=== PATIENT | female | born 1970 | race Caucasian/White ===

== ENCOUNTER → 2021-08-03 15:55 | Outpatient (CLI) | payer OTHER, SELFPAY ==
[2021-08-03 16:48] LABS: Hematocrit 40.9 % (37-47); Hemoglobin 13.1 g/dL (12.0-15.0); Mean Corpuscular Hgb 28.7 pg (27.0-32.0); Mean Corpuscular Volume 89.7 fL (81-99); Platelet Count 235 K/mm3 (150-450); RBC Distribution Width CV 12.3 % (11.6-14.6); RBC Distribution Width SD 40.5 fl (35.1-43.9); Red Blood Count 4.56 M/mm3 (4.2-5.4); White Blood Count 7.9 K/mm3 (4.4-11.0)
[2021-08-03 16:56] LABS: Color, Urine Yellow (Yellow); Glucose, Dipstick Normal (Normal); Ketone-Dipstick Negative (Negative); Leukocyte Esterase-Dipstick Negative /ul (Negative); Nitrite-Dipstick Negative (Negative); Occult Blood-Urine Negative /ul (Negative); Protein-Dipstick Negative (Negative); Specific Gravity, Urine 1.015 (1.002-1.030); Urine Bilirubin Dipstick Negative (Negative); Urine Clarity Sl. Cloudy (Clear); Urine Urobilinogen Normal (Normal)
[2021-08-03 17:05] LABS: CRP < 2.90 mg/L (0.0-3.0)
== END ==
PROVIDERS: PCP Internal Medicine; Visit Provider Obstetrics & Gynecology Gynecology
DX: R10.30 Lower abdominal pain, unspecified (principal)
CPT/HCPCS: 36415; 81002; 85027; 86140

== ENCOUNTER 2021-09-01 07:30 | Outpatient (CLI) | payer OTHER, SELFPAY ==
--- NOTE | 2021-09-01 07:35 | BI_ITS ---
MAMMOGRAPHY - BILATERAL SCREENING REASON FOR EXAM: Female, 51 years old. Routine annual screening examination. PERTINENT HISTORY: Mother with breast cancer. TECHNIQUE: Digital bilateral breast alexandru (3D mammographic acquisition) in the CC and MLO projections. 2-D mediolateral oblique (MLO) and craniocaudad (CC) views of both breasts were obtained. CAD: Full Field Digital Mammography with Computer Added Detection was performed. COMPARISON: Comparison is made with prior abdomen examination dated 08/29/2015. FINDINGS: Breast Composition: The breasts are heterogeneously dense, which may obscure small masses. There are no dominant masses or suspicious calcifications. Small benign-appearing bilateral axillary lymph nodes. No other significant abnormalities are identified. There has been no significant change since the prior study. BI/SCRN MAMM (CAD)W/ALEXANDRU BILAT IMPRESSION: Stable bilateral screening mammogram. Yearly follow-up mammogram recommended. (A) ASSESSMENT CATEGORY: BIRADS Category 2: Benign. A letter regarding these results will be sent to the patient by the facility within 30 days. Approximately 10% of breast cancers are not detected by mammography. A normal mammogram should not delay biopsy of a clinically suspicious abnormality. [id number] Electronically Signed: Jarret Garcia MD at 8:33 EST , Service support ,
== END 2021-09-01 23:59 | disposition short-term general hospital (02) ==
LOC: OPBI 07:30
PROVIDERS: PCP Internal Medicine; Referring Provider Obstetrics & Gynecology Gynecology; Visit Provider Obstetrics & Gynecology Gynecology
DX: Z12.31 Encounter for screening mammogram for malignant neoplasm of breast (principal)
CPT/HCPCS: 77063; 77067

== ENCOUNTER 2021-10-17 08:03 | Day surgery (SDC) | payer OTHER, SELFPAY ==
[2021-10-17] VITALS (12 sets, daily range): BP systolic 92–144; BP diastolic 52–91; PULSE 63–100; RESP 16–18; TEMP 36.2–36.9; O2SAT 94–100; BMI 31.9
--- NOTE | 2021-10-17 | COLBX_PTH ---
PATIENT: LO MIKE LOC: EN U#:[id number] AGE/SX: 51/F ROOM: RE10/17/[address]: Dr. Yousuf Narayanan MD : 1970 BED: DIS: 10/17/2021 SPEC #: [id number] RECD: 10/17/21 12:16 STATUS: DAVI LAIRD #: [id number] AKLIN: 10/17/21 00:[address]: Yousuf Narayanan DEPT: SURGICAL PATHOLOGY RECD BY: Daron Lopes ENTERED: 10/17/21 12:17 SP TYPE: COLON BX OTHR DR: Dr. Lo Lugo MD Tissues: Descending colon Procedures: Surgery Specimen Level IV HEADER OPERATION: Colonoscopy ? open access (MOD) PRE-OP DIAGNOSIS: Screening for malignant neoplasm of colon TISSUE SUBMITTED: Descending polyp biopsy MICROSCOPIC DIAGNOSIS Descending colon polyp, biopsy: Fragments of colonic mucosa, no pathologic diagnosis. See comment. SJ:maurice 10/18/2021 COMMENT Adenomatous or hyperplastic changes are not seen. MICROSCOPIC DESCRIPTION Slides are reviewed. GROSS DESCRIPTION Received in fixative is one container labeled with the patient's name and designated descending polyp biopsy. The specimen consists of multiple irregular fragments of light chand soft tissue that in aggregate measure 1 x 0.3 x 0.1 cm. The specimen is totally submitted in one cassette. / JULIÁN:maurice 10/17/2021 TC:4 CPT: 25477
[2021-10-17] MEDS: Lactated Ringers 1,000 ML 15 ML IV (08:28)
--- NOTE | 2021-10-17 09:16 | HP.PCM_ITS ---
HPI - General HPI Narrative PEEWEE MIKE, is a 51 F who presents for screening colonoscopy today. She has never had a previous one. No middle abdominal pain no bright red blood per rectum. No family history. She otherwise enjoys good health. She has not had COVID-19 and she has been vaccinated. FORMERLY [facility], 1928–1983 Medical History (Updated 10/12/21 @ 11:48 by Calista Madsen) Hay fever History of deviated nasal septum History of diverticulosis Non-smoker Post-menopausal Wears contact lenses Wears glasses Home Medications magnesium chloride 200 mg PO PRN PRN 10/04/21 [History Last Taken Unknown] multivitamin 1 tab PO DAILY 10/04/21 [History Last Taken Unknown] Allergy/AdvReac Type Severity Reaction Status Date / Time acetaminophen [From Tylenol] Allergy Unknown Verified 10/17/21 08:21 aspirin Allergy Unknown Verified 10/17/21 08:21 erythromycin base Allergy Hives Verified 10/17/21 08:21 [From E-Mycin] ibuprofen [From Advil] Allergy Unknown Verified 10/17/21 08:21 Iodinated Contrast Media Allergy Hives Verified 10/17/21 08:21 Sulfa (Sulfonamide Allergy Unknown Verified 10/17/21 08:21 Antibiotics) sulfamethoxazole Allergy Hives Verified 10/17/21 08:21 [From Bactrim] trimethoprim [From Bactrim] Allergy Hives Verified 10/17/21 08:21 Family History (Updated 10/04/21 @ 08:13 by Linsey Beavers) Other Cancer Social History (Updated 10/04/21 @ 08:14 by Linsey Beavers) household members: none current occupational status: employed 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 Smoking Status: Never smoker alcohol intake: never ROS Constitutional Constitutional: Reports systems reviewed and no addt'l complaints, except as documented Cardiovascular Cardiovascular: Denies chest pain Respiratory/Chest Respiratory/Chest: Denies shortness of breath at rest Gastrointestinal Gastrointestinal: Denies abdominal pain, change in bowel habits, hematochezia or melena Vital Signs Vital Signs Vital Signs: 10/17/21 08:22 Temperature 97.1 F L Temperature Source Temporal Pulse Rate 100 Respiratory Rate 18 Respiratory Pattern Normal Blood Pressure 144/79 H Blood Pressure Mean 100 Blood Pressure Source Monitor Blood Pressure Position Semi-Fowlers Blood Pressure Location Left Arm Pulse Ox 99 Oxygen Delivery Method Room Air Weight Weight: 210 lb 3.372 oz Body Mass Index (BMI) 31.9 Physical Exam Const alert, oriented x3 and no apparent distress General Appearance: cooperative and comfortable Eyes General Eye: normal appearance of both eyes Neck General: normal visual inspection Chest inspection of chest normal Resp Effort and Inspection: able to speak in complete sentences and symmetric chest movement Auscultation: clear to auscultation bilaterally Cardio regular rate and regular rhythm GI soft to palpation, non-tender and non-distended Extremity no calf tenderness Neuro oriented x3 Psych thought process normal Assessment & Plan Assessment/Plan (1) Encounter for screening for malignant neoplasm of colon: PLAN: I recommended the patient a screening colonoscopy with possible biopsy or polypectomy as indicated. She is aware of the technique, benefit, risk, alternatives. She presents via open access today. We will proceed as noted. Yousuf Narayanan M.D., F.A.C.S.
[2021-10-17] MEDS: Midazolam 5 MG/ML Syringe ×2 (09:20→09:35)
[2021-10-17] MEDS: DiphenhydrAMINE 50 MG/ML Syringe (09:24)
[2021-10-17] MEDS: Ondansetron 4 MG/2 ML Vial (09:37)
--- NOTE | 2021-10-17 09:54 | OP.COLON_ITS ---
Patient Name: Lo Hernandez Procedure Date: 10/17/2021 9:08 AM Date of : 1970 Age: 51 Procedure: Colonoscopy Indications: Screening for colorectal malignant neoplasm Providers: Yousuf Narayanan MD Medicines: Midazolam 6 mg IV, Meperidine 150 mg IV, Ondansetron 4 mg IV, Diphenhydramine 25 mg IV Patient Profile: Last Colonoscopy: none. The patient's first colonoscopy is today. Complications: No immediate complications. Procedure: Pre-Anesthesia Assessment: - Prior to the procedure, a History and Physical was performed, and patient medications and allergies were reviewed. The patient's tolerance of previous anesthesia was also reviewed. The risks and benefits of the procedure and the sedation options and risks were discussed with the patient. All questions were answered, and informed consent was obtained. Prior Anticoagulants: The patient has taken no previous anticoagulant or antiplatelet agents. ASA Grade Assessment: II - A patient with mild systemic disease. After reviewing the risks and benefits, the patient was deemed in satisfactory condition to undergo the procedure. After I obtained informed consent, the scope was passed under direct vision. Throughout the procedure, the patient's blood pressure, pulse, and oxygen saturations were monitored continuously. The pediatric colonoscope was introduced through the anus and advanced to the cecum, identified by appendiceal orifice and ileocecal valve. The colonoscopy was somewhat difficult due to a tortuous colon. Successful completion of the procedure was aided by increasing the dose of sedation medication. The patient tolerated the procedure well. The quality of the bowel preparation was adequate to identify polyps. The ileocecal valve and the appendiceal orifice were photographed. Moderate Sedation: Moderate (conscious) sedation was administered by the endoscopy nurse and supervised by the endoscopist. The following parameters were monitored: oxygen saturation, heart rate, blood pressure, and response to care. Total physician intraservice time was 18 minutes. Scope In: 9:26:13 AM Scope Withdrawal Time 0 hours 0 minutes 13 seconds Scope Out: 9:47:32 AM Total Procedure Duration Time 0 hours 21 minutes 19 seconds Findings: The digital rectal exam findings include non-thrombosed external hemorrhoids, non-thrombosed internal hemorrhoids and internal hemorrhoids that prolapse with straining, but spontaneously regress to the resting position (Grade II). A 5 mm polyp was found in the mid descending colon. The polyp was sessile. The polyp was removed with a cold biopsy forceps. Resection and retrieval were complete. Multiple diverticula were found in the sigmoid colon. The colon (entire examined portion) was moderately tortuous. Advancing the scope required using manual pressure. Impression: - Non-thrombosed external hemorrhoids, non-thrombosed internal hemorrhoids and internal hemorrhoids that prolapse with straining, but spontaneously regress to the resting position (Grade II) found on digital rectal exam. - One 5 mm polyp in the mid descending colon, removed with a cold biopsy forceps. Resected and retrieved. - Diverticulosis in the sigmoid colon. - Tortuous colon. Recommendation: - Discharge patient to home. - Resume previous diet. - Continue present medications. - Repeat colonoscopy in 5 years for surveillance based on pathology results. - Telephone my office for pathology results in 1 week. I recommend monitored anesthesia care for her next colonoscopy Procedure Code(s): --- Professional --- 27946, Colonoscopy, flexible; with biopsy, single or multiple 10879, 59, Moderate sedation services provided by the same physician or other qualified health youth care professional performing the diagnostic or therapeutic service that the sedation supports, requiring the presence of an independent trained observer to assist in the monitoring of the patient's level of consciousness and physiological status; initial 15 minutes of intraservice time, patient age 5 years or older Diagnosis Code(s): --- Professional --- Z12.11, Encounter for screening for malignant neoplasm of colon K64.1, Second degree hemorrhoids K64.4, Residual hemorrhoidal skin tags D12.4, Benign neoplasm of descending colon K57.30, Diverticulosis of large intestine without perforation or abscess without bleeding Q43.8, Other specified congenital malformations of intestine CPT copyright 2017 [employer]. All rights reserved. The codes documented in this report are preliminary and upon acquisition specialist review may be revised to meet current compliance requirements. Yousuf Narayanan MD 10/17/2021 9:53:26 AM This report has been signed electronically. Number of Addenda: 0 Note Initiated On: 10/17/2021 9:08 AM
--- NOTE | 2021-10-17 09:55 | OP.CCLET_ITS ---
10/17/2021 Lo Lugo [facility] [address] [place] [address] Re : Colonoscopy procedure for Lo Hernandez Dear Dr. Lugo This procedure was performed on Sunday, October 17, 2021. My impressions and recommendations are as follows: Impressions : - Non-thrombosed external hemorrhoids, non-thrombosed internal hemorrhoids and internal hemorrhoids that prolapse with straining, but spontaneously regress to the resting position (Grade II) found on digital rectal exam. - One 5 mm polyp in the mid descending colon, removed with a cold biopsy forceps. Resected and retrieved. - Diverticulosis in the sigmoid colon. - Tortuous colon. Recommendations : - Discharge patient to home. - Resume previous diet. - Continue present medications. - Repeat colonoscopy in 5 years for surveillance based on pathology results. - Telephone my office for pathology results in 1 week. I recommend monitored anesthesia care for her next colonoscopy My findings are described in the full procedure note, which is enclosed. If I can be of further assistance, please feel free to contact me at Doctor phone number(s): Work: . Sincerely, Yousuf Narayanan MD 10/17/2021 9:53:26 AM This report has been signed electronically.
== END 2021-10-17 23:59 | disposition home or self-care (01) ==
LOC: EN 08:04 → AC 08:05
PROVIDERS: PCP Internal Medicine; Referring Provider Internal Medicine; Visit Provider Surgery
PROC: 0DJD8ZZ Inspection of Lower Intestinal Tract, Via Natural or Artificial Opening Endoscopic (ICD-10-PCS; CPT 45378; principal; 2021-10-17 08:55)
DX: Z12.11 Encounter for screening for malignant neoplasm of colon (principal); K64.1 Second degree hemorrhoids; K64.4 Residual hemorrhoidal skin tags; K57.30 Diverticulosis of large intestine without perforation or abscess without bleeding; K63.5 Polyp of colon; Q43.8 Other specified congenital malformations of intestine
CPT/HCPCS: 45380; 88305; 99152; 99153; J7120; J2405

== ENCOUNTER → 2021-12-06 | Outpatient (CLI) | payer OTHER, SELFPAY ==
[2021-12-06 08:00] LABS: Mucous, Urine 0 SEEN /hpf (<or=2+); Red Blood Cells-Urine 0 SEEN /hpf (0-5)
[2021-12-06 08:17] LABS: Absolute Lymphocyte Count 2.24 X10^3/uL (0.83-4.51); Basophil# 0.05 X10^3/uL; Basophil% 0.8 % (0-1); Eosinophil# 0.18 X10^3/uL; Hematocrit 42.3 % (37-47); Hemoglobin 13.9 g/dL (12.0-15.0); Lymphocyte # 2.24 X10^3/ul (0.83-4.51); Lymphocyte % 37.6 % (19-41); Mean Corp Hgb Conc 32.9 g/dL (32-36); Mean Corpuscular Hgb 29.1 pg (27.0-32.0); Mean Corpuscular Volume 88.5 fL (81-99); Mean Platelet Vol. 11.3 fl (6.2-12.0); Monocyte# 0.46 X10^3/uL; Monocyte% 7.7 % (0-10); NRBC Flagged by Analyzer 0 % (0-5); Neutrophil # 3.01 X10^3/uL (2.7-7.7); Neutrophil % 50.6 % (47-70); Platelet Count 238 K/mm3 (150-450); RBC Distribution Width CV 12.4 % (11.6-14.6); RBC Distribution Width SD 40.3 fl (35.1-43.9); Red Blood Count 4.78 M/mm3 (4.2-5.4)
[2021-12-06 08:20] LABS: Color, Urine Yellow (Yellow); Glucose, Dipstick Normal (Normal); Ketone-Dipstick Negative (Negative); Leukocyte Esterase-Dipstick Negative /ul (Negative); Nitrite-Dipstick Negative (Negative); Occult Blood-Urine Negative /ul (Negative); Protein-Dipstick Negative (Negative); Urine Bilirubin Dipstick Negative (Negative); Urine Clarity Clear (Clear); Urine Urobilinogen Normal (Normal)
[2021-12-06 08:42] LABS: Bacteria 1+ /hpf (None Seen); Squamous Epithelial Cells - UA 0-5 SEEN /hpf (5-10); White Blood Cells 0-5 SEEN /hpf (0-5)
[2021-12-06 08:57] LABS: AST(SGOT) 17 U/L (15-37); Alanine Aminotransfer ALT/SGPT 32 U/L (13-56); Albumin, Serum 3.8 g/dL (3.2-5.0); Alkaline Phosphatase 102 U/L (45-117); Anion Gap 7 (5-15); BUN 10 mg/dL (7-18); BUN/Creat Ratio 12.3 RATIO (10-20); Calcium,Total 9.2 mg/dL (8.5-10.1); Chloride 105 mmol/L (98-107); Cholesterol 210 mg/dL (200); Creatinine, Serum 0.82 mg/dL (0.55-1.02); EST Glomerular Filtration Rate 78 mL/min (>60); Est Glom Filt Rate - Afr Amer 95 mL/min (>60); Free T3 2.9 pg/mL (2.18-3.98); Globulin 3.7 g/dL (2.2-4.2); Glucose 103 mg/dL (74-106); High Density Lipoprotein 45 mg/dL; Magnesium 2.1 mg/dL (1.6-2.6); Potassium 3.9 mmol/L (3.5-5.1); Protein, Total 7.5 g/dL (6.4-8.2); Sodium Level 137 mmol/L (136-145); Triglycerides 176 mg/dL; Very Low Density Lipoprotein 35 mg/dL (5-40)
[2021-12-06 09:30] LABS: Vitamin D,25 Hydroxy 17.3 ng/mL
== END | disposition home or self-care (01) ==
LOC: LAB 07:54
PROVIDERS: PCP Internal Medicine; Referring Provider Internal Medicine; Visit Provider Internal Medicine
DX: Z01.818 Encounter for other preprocedural examination (principal); Z13.220 Encounter for screening for lipoid disorders; Z13.1 Encounter for screening for diabetes mellitus; E55.9 Vitamin D deficiency, unspecified
CPT/HCPCS: 36415; 80053; 80061; 81001; 82306; 83735; 84439; 84443; 84481; 85025; 87086; 87088

== ENCOUNTER → 2021-12-13 | Outpatient (CLI) | payer OTHER, SELFPAY ==
--- NOTE | 2021-12-13 07:11 | EKG12_ITS ---
Test Reason : PREOP Blood Pressure : / mmHG Vent. Rate : 066 BPM Atrial Rate : 066 BPM P-R Int : 142 ms QRS Dur : 094 ms QT Int : 428 ms P-R-T Axes : -09 -34 018 degrees QTc Int : 448 ms Normal sinus rhythm Left axis deviation Confirmed by RAYSHAWN WILSON, OMER ([id number]), desk editor ALEX SAMANO ([id number]) on 12/13/2021 9:50:59 AM Referred By: Lo Lugo Confirmed By:OMER TABARES MD
== END | disposition home or self-care (01) ==
PROVIDERS: PCP Internal Medicine; Referring Provider Internal Medicine; Visit Provider Internal Medicine
DX: Z01.818 Encounter for other preprocedural examination (principal); R00.2 Palpitations; K57.30 Diverticulosis of large intestine without perforation or abscess without bleeding
CPT/HCPCS: 93005

== ENCOUNTER → 2023-03-06 | Outpatient (CLI) | payer OTHER, SELFPAY ==
--- NOTE | 2023-03-06 08:09 | BI_ITS ---
MAMMOGRAPHY - BILATERAL SCREENING REASON FOR EXAM: Female, 52 years old. Routine annual screening examination. PERTINENT HISTORY: Mother with breast cancer. Grandmother with breast cancer. TECHNIQUE: Digital bilateral breast alexandru (3D mammographic acquisition) in the CC and MLO projections. 2-D mediolateral oblique (MLO) and craniocaudad (CC) views of both breasts were obtained. CAD: Full Field Digital Mammography with Computer Added Detection was performed. COMPARISON: Comparison is made with prior study dated September 01, 2021. FINDINGS: Breast Composition: The breasts are heterogeneously dense, which may obscure small masses. New focal area of architectural distortion and density is seen in the central portion of the left breast on the craniocaudad view. The patient will be recalled for additional views including 90 degree lateral view and compression spot views of the left breast. No other significant abnormalities are identified. BI/SCRN MAMM (CAD)W/ALEXANDRU BILAT IMPRESSION: New focal area of architectural distortion seen in the central aspect of the left breast on the craniocaudad view as described. The patient will be recalled for additional views of the left breast. Recall Side: Left Breast ASSESSMENT CATEGORY: BIRADS Category 0: Incomplete. Need additional imaging evaluation. A letter regarding these results will be sent to the patient by the facility within 30 days. Approximately 10% of breast cancers are not detected by mammography. A normal mammogram should not delay biopsy of a clinically suspicious abnormality. [id number] Electronically Signed: Jarret Garcia MD at 9:00 EDT ,
== END | disposition home or self-care (01) ==
LOC: OPBI 08:07
PROVIDERS: PCP Internal Medicine; Referring Provider Obstetrics & Gynecology Gynecology; Visit Provider Obstetrics & Gynecology Gynecology
DX: Z12.31 Encounter for screening mammogram for malignant neoplasm of breast (principal); Z80.3 Family history of malignant neoplasm of breast
CPT/HCPCS: 77063; 77067

== ENCOUNTER → 2023-03-07 | Outpatient (CLI) | payer OTHER, SELFPAY ==
--- NOTE | 2023-03-07 08:57 | BI_ITS ---
MAMMOGRAPHY - UNILATERAL DIAGNOSTIC: LEFT BREAST REASON FOR EXAM: Female, 52 years old. Abnormal screening mammogram. PERTINENT HISTORY: Mother with breast cancer. Grandmother with breast cancer. TECHNIQUE: Compression spot views and magnification views of the left breast were obtained. CAD: Full Field Digital Mammography with Computer Added Detection was performed. COMPARISON: Comparison is made with prior study March 06, 2023. FINDINGS: Breast Composition: The breasts are heterogeneously dense, which may obscure small masses. Persistent irregular nodular density and architectural distortion with microcalcifications is seen. Correlation with ultrasound is recommended. No other significant abnormalities are identified. BI/DIAG MAMM W/CAD, UNILAT IMPRESSION: Persistent architectural distortion with microcalcifications in the central portion of the left breast. Correlation with ultrasound is recommended. ASSESSMENT CATEGORY: BIRADS Category 0: Incomplete. Need additional imaging evaluation. A letter regarding these results will be sent to the patient by the facility within 30 days. Approximately 10% of breast cancers are not detected by mammography. A normal mammogram should not delay biopsy of a clinically suspicious abnormality. Electronically Signed: Jarret Garcia MD at 10:02 EDT ,
--- NOTE | 2023-03-07 09:33 | US_ITS ---
STUDY: ULTRASOUND BREAST - LEFT REASON FOR EXAM: Female, 52 years old. Abnormal screening and diagnostic mammogram. TECHNIQUE: Axial and longitudinal images of the LEFT breast were performed with a high resolution ultrasound transducer. # OF IMAGES: 67 COMPARISON: Comparison is made with prior mammogram dated March 06, 2023 and March 07, 2023. FINDINGS: LEFT Breast: The mammographic and mildly corresponds to a 1 cm x 0.9 cm heterogeneous hypoechoic solid nodule at the 1:00 position of the breast at 3 cm from the nipple. Biopsy is recommended. Incidental note is made of a 4 mm x 4 mm x 4 mm cyst at the 12:00 position of the breast at 4 cm from the nipple. US/Breast Limited Unilateral IMPRESSION: 1 cm x 0.9 cm heterogeneous hypoechoic irregular solid nodule at the 1:00 position of the breast at 3 cm from nipple. Biopsy recommended. ASSESSMENT CATEGORY: BIRADS Category 4: Suspicious - Biopsy Should Be Considered. A letter regarding these results will be sent to the patient by the facility within 30 days. Electronically Signed: Jarret Garcia MD at 11:04 EDT ,
== END | disposition home or self-care (01) ==
PROVIDERS: PCP Internal Medicine; Referring Provider Obstetrics & Gynecology Gynecology; Visit Provider Obstetrics & Gynecology Gynecology
DX: R92.2 Inconclusive mammogram (principal)
CPT/HCPCS: 76642; 77061; 77065; G0279

== ENCOUNTER 2023-03-13 16:51 | Outpatient (CLI) | payer OTHER, SELFPAY | END 2023-03-13 23:59 | disposition home or self-care (01) | LOC: LABSPEC 16:52 | PROVIDERS: PCP Internal Medicine; Referring Provider Surgery; Visit Provider Surgery | DX: Z00.00 Encounter for general adult medical examination without abnormal findings (principal) ==

== ENCOUNTER → 2023-03-14 | Outpatient (CLI) | payer OTHER, SELFPAY ==
--- NOTE | 2023-03-13 | BRBX_PTH ---
PATIENT: LO MIKE LOC: [facility] U#:[id number] AGE/SX: 52/F ROOM: RE03/14/[address]: Dr. Yousuf Narayanan MD : 1970 BED: DIS: 03/14/2023 SPEC #: [id number] RECD: 03/13/23 16:40 STATUS: DAVI REAshu #: [id number] KALIN: 03/13/23 00:[address]: Yousuf Narayanan DEPT: SURGICAL PATHOLOGY RECD BY: Mela Orellana ENTERED: 03/14/23 11:45 SP TYPE: BREAST BX OTHR DR: Dr. Lo Lugo MD Tissues: Left breast, NOS Procedures: Surgery Specimen Level IV HEADER OPERATION: Left breast biopsy PRE-OP DIAGNOSIS: Left breast mass TISSUE SUBMITTED: Left breast MICROSCOPIC DIAGNOSIS Left breast mass, biopsy: Densely collagenized tissue with benign ductal elements. No evidence of malignancy. AM:maurice 03/15/2023 MICROSCOPIC DESCRIPTION Slides are reviewed. GROSS DESCRIPTION Received in fixative is one container labeled with the patient's name and designated left breast. The specimen consists of multiple elongated fragments of chand-yellow fibroadipose tissue that in aggregate measure 1.5 x 0.2 x 0.1 cm. The entire specimen is submitted in one cassette. / SJ:maurice 03/14/2023 TC:5 CPT: 15016
--- NOTE | 2023-03-14 08:56 | BI_ITS ---
MAMMOGRAPHY - UNILATERAL DIAGNOSTIC: LEFT BREAST REASON FOR EXAM: Female, 52 years old. Clip placement following biopsy. PERTINENT HISTORY: Ultrasound-guided breast biopsy at the 1:00 position of the left breast at 3; some the nipple. TECHNIQUE: Digital unilateral breast modesto (3D mammographic acquisition) in the CC and MLO projections. 2-D mediolateral oblique (MLO) and craniocaudad (CC) views of both breasts were obtained. CAD: Full Field Digital Mammography with Computer Added Detection was performed. COMPARISON: Comparison is made with prior mammogram dated March 06, 2023. FINDINGS: A tissue clip marker is seen in the upper outer aspect of the left breast. BI/DIAG MAMM W/CAD, UNILAT IMPRESSION: Tissue clip marker is seen in the upper outer aspect of the left breast. ASSESSMENT CATEGORY: BIRADS Category 2: Benign. A letter regarding these results will be sent to the patient by the facility within 30 days. Approximately 10% of breast cancers are not detected by mammography. A normal mammogram should not delay biopsy of a clinically suspicious abnormality. Electronically Signed: Jarret Garcia MD at 9:39 EDT ,
== END | disposition home or self-care (01) ==
LOC: OPBI 08:55
PROVIDERS: PCP Internal Medicine; Referring Provider Surgery; Visit Provider Surgery
DX: N63.22 Unspecified lump in the left breast, upper inner quadrant (principal)
CPT/HCPCS: 19083; 77065; 88305

== ENCOUNTER → 2023-03-26 | Outpatient (CLI) | payer OTHER, SELFPAY ==
--- NOTE | 2023-03-26 | BRBX_PTH ---
PATIENT: LO MIKE LOC: [facility] U#:[id number] AGE/SX: 52/F ROOM: RE03/26/[address]: Dr. Yousuf Narayanan MD : 1970 BED: DIS: 03/26/2023 SPEC #: [id number] RECD: 03/26/23 09:41 STATUS: DAVI REAshu #: [id number] KALIN: 03/26/23 00:[address]: Yousuf Narayanan DEPT: SURGICAL PATHOLOGY RECD BY: Daron Lopes ENTERED: 03/26/23 09:42 SP TYPE: BREAST BX OTHR DR: Dr. Lo Lugo MD Tissues: Left breast, NOS Procedures: Surgery Specimen Level IV HEADER OPERATION: Left stereotactic breast biopsy PRE-OP DIAGNOSIS: Left central breast distortion TISSUE SUBMITTED: Left breast core tissue ISCHEMIC TIME: 1 minute FIXATION TIME: 11 hours MICROSCOPIC DIAGNOSIS Left breast, stereotactic core biopsy: Fibrocystic change. Focal intraductal hyperplasia without atypia. Focal adenomatous change. Banal microcalcifications. No evidence of malignancy. AM:maurice 03/27/2023 MICROSCOPIC DESCRIPTION Slides are reviewed. GROSS DESCRIPTION Received is one container labeled with the patient's name and not further designated. The specimen consists of multiple irregular fragments of yellow-chand soft tissue that in aggregate measure 5.0 x 3.0 x 0.2 cm. The specimen is totally submitted in two cassettes. / AM:maurice 03/26/2023 TC:5 CPT: 39071
--- NOTE | 2023-03-26 08:14 | PCM.HP.BLA ---
History and Physical Date of Admission: 03/26/[address] Yousuf Narayanan MD on 03/14/23 at 1401 Intake Chief Complaint: surgical clearance Allergies acetaminophen [From Tylenol] Allergy (Verified 03/13/23 15:27) Unknownaspirin Allergy (Verified 03/13/23 15:27) Unknownerythromycin base [From E-Mycin] Allergy (Verified 03/13/23 15:27) Hivesibuprofen [From Advil] Allergy (Verified 03/13/23 15:27) UnknownIodinated Contrast Media Allergy (Verified 03/13/23 15:27) HivesSulfa (Sulfonamide Antibiotics) Allergy (Verified 03/13/23 15:27) Unknownsulfamethoxazole [From Bactrim] Allergy (Verified 03/13/23 15:27) Hivestrimethoprim [From Bactrim] Allergy (Verified 03/13/23 15:27) Hives Medications magnesium chloride 64 mg (magnesium chloride) tablet 200 mg PO PRN PRN SUPPLEMENT 10/04/21 [History Confirmed 03/13/23] multivitamin (Daily Multi-Vitamin tablet) 1 tab PO DAILY 10/04/21 [History Confirmed 03/13/23] Assessment and Plan Assessment and Plan (1) Abnormal ultrasound of breast: Status: Acute (2) Abnormal mammogram of left breast: Status: Acute Plan: To complicate findings it is now apparent that although the breast mammogram and ultrasound suggested that the item of concern on mammogram correlated with the ultrasound with a lesion in the upper outer quadrant of the left breast in actuality the mammogram is identifying an item in the medial left breast and the ultrasound a questionable item in the upper outer quadrant left breast. Postprocedural mammogram demonstrates the marking clip in the outer left breast not in the location of the questionable finding on mammogram. With this information then we will plan to proceed with a stereotactic needle core biopsy of the inner left breast lesion identified on mammogram. We are awaiting pathology on the ultrasound performed a core biopsy of the very challenging area to identify in the upper outer left breast. Yousuf Narayanan M.D., F.A.C.S. Orders: Orders DIAG MAMM W/CAD, UNILAT Today R92.8 - Other abnormal and inconclusive findings on diagnostic imaging of breast 03/14/23 1401 <Electronically signed by Yousuf Narayanan MD> Date Yousuf Narayanan MD cc: Dr. Simona Wahl MD; Dr. Lo Lugo MD ~* Signed Intake Vital Signs 12/01/2207:25 03/13/2315:26 Height 5 ft 8 in 5 ft 8 in Weight: 166 lb 8 oz BMI 25.3 BP 148/84 H Blood Pressure Location Rt brachial Position Sitting Respiration 17 Pulse 89 Pulse Source Monitor Intake Visit Reasons: BIRADS 4 Chief Complaint: surgical clearance Allergies acetaminophen [From Tylenol] Allergy (Verified 03/13/23 15:27) Unknownaspirin Allergy (Verified 03/13/23 15:27) Unknownerythromycin base [From E-Mycin] Allergy (Verified 03/13/23 15:27) Hivesibuprofen [From Advil] Allergy (Verified 03/13/23 15:27) UnknownIodinated Contrast Media Allergy (Verified 03/13/23 15:27) HivesSulfa (Sulfonamide Antibiotics) Allergy (Verified 03/13/23 15:27) Unknownsulfamethoxazole [From Bactrim] Allergy (Verified 03/13/23 15:27) Hivestrimethoprim [From Bactrim] Allergy (Verified 03/13/23 15:27) Hives Medications magnesium chloride 64 mg (magnesium chloride) tablet 200 mg PO PRN PRN SUPPLEMENT 10/04/21 [History Confirmed 03/13/23] multivitamin (Daily Multi-Vitamin tablet) 1 tab PO DAILY 10/04/21 [History Confirmed 03/13/23] PFSH Medical History Hay fever History of deviated nasal septum History of diverticulosis Non-smoker Post-menopausal Wears contact lenses Wears glasses Family History Other Cancer Social History household members: none current occupational status: employed 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 Simona Wahl for surgical consultation regarding abnormal breast imaging. She will consult recommendations will return to her. As noted below on March 06, 2023 the patient had routine screening mammograms. There is felt to be a new focal area of architectural distortion seen in the central aspect of the left breast. BI-RADS Category 0. On the diagnostic images done March 07, 2023 there is a persistent irregular nodular density identified. Still BI-RADS 0. On that same day ultrasound was performed suggesting a 1 x 0.9 cm heterogenous hypoechoic irregular solid nodule left breast 1 o'clock position +3 cm. BI-RADS Category 4 biopsy recommended. I have personally reviewed those images and concur. 52-year-old female. Z0. Menarche age 10. No previous breast biopsies. She did have a hysterectomy for benign disease and briefly used minimal amount of vaginal cream for a year. Hysterectomy was December 18, 2021. Family history notable for mother had breast cancer at age 74. Grandmother also had breast cancer. The patient has had a 50 pound intentional weight loss and states that most of that weight gain from her breasts. She states that mammographic imaging changed at that time. She has no nipple discharge or bleeding. No tenderness. I have most recently assisted her with a screening colonoscopy on October 17, 2021. That demonstrated tortuous colon and hemorrhoids and diverticulosis and a 5 mm polyp in the mid descending colon which on pathology however was simply normal colonic mucosa. March 07, 2023 STUDY: ULTRASOUND BREAST - LEFT REASON FOR EXAM: Female, 52 years old. Abnormal screening and diagnostic mammogram. TECHNIQUE: Axial and longitudinal images of the LEFT breast were performed with a high resolution ultrasound transducer. # OF IMAGES: 67 COMPARISON: Comparison is made with prior mammogram dated March 06, 2023 and March 07, 2023. FINDINGS: LEFT Breast: The mammographic and mildly corresponds to a 1 cm x 0.9 cm heterogeneous hypoechoic solid nodule at the 1:00 position of the breast at 3 cm from the nipple. Biopsy is recommended. Incidental note is made of a 4 mm x 4 mm x 4 mm cyst at the 12:00 position of the breast at 4 cm from the nipple. US/Breast Limited Unilateral IMPRESSION: 1 cm x 0.9 cm heterogeneous hypoechoic irregular solid nodule at the 1:00 position of the breast at 3 cm from nipple. Biopsy recommended. ASSESSMENT CATEGORY: BIRADS Category 4: Suspicious - Biopsy Should Be Considered. A letter regarding these results will be sent to the patient by the facility within 30 days. Electronically Signed: Jarret Garcia MD at 11:04 EDT , March 07, 2023 MAMMOGRAPHY - UNILATERAL DIAGNOSTIC: LEFT BREAST REASON FOR EXAM: Female, 52 years old. Abnormal screening mammogram. PERTINENT HISTORY: Mother with breast cancer. Grandmother with breast cancer. TECHNIQUE: Compression spot views and magnification views of the left breast were obtained. CAD: Full Field Digital Mammography with Computer Added Detection was performed. COMPARISON: Comparison is made with prior study March 06, 2023. FINDINGS: Breast Composition: The breasts are heterogeneously dense, which may obscure small masses. Persistent irregular nodular density and architectural distortion with microcalcifications is seen. Correlation with ultrasound is recommended. No other significant abnormalities are identified. BI/DIAG MAMM W/CAD, UNILAT IMPRESSION: Persistent architectural distortion with microcalcifications in the central portion of the left breast. Correlation with ultrasound is recommended. ASSESSMENT CATEGORY: BIRADS Category 0: Incomplete. Need additional imaging evaluation. A letter regarding these results will be sent to the patient by the facility within 30 days. Approximately 10% of breast cancers are not detected by mammography. A normal mammogram should not delay biopsy of a clinically suspicious abnormality. Electronically Signed: Jarret Garcia MD at 10:02 EDT , March 06, 2023 MAMMOGRAPHY - BILATERAL SCREENING REASON FOR EXAM: Female, 52 years old. Routine annual screening examination. PERTINENT HISTORY: Mother with breast cancer. Grandmother with breast cancer. TECHNIQUE: Digital bilateral breast alex[place]ru (3D mammographic acquisition) in the CC and MLO projections. 2-D mediolateral oblique (MLO) and craniocaudad (CC) views of both breasts were obtained. CAD: Full Field Digital Mammography with Computer Added Detection was performed. COMPARISON: Comparison is made with prior study dated September 01, 2021. FINDINGS: Breast Composition: The breasts are heterogeneously dense, which may obscure small masses. New focal area of architectural distortion and density is seen in the central portion of the left breast on the craniocaudad view. The patient will be recalled for additional views including 90 degree lateral view and compression spot views of the left breast. No other significant abnormalities are identified. BI/SCRN MAMM (CAD)W/ALEXANDRU BILAT IMPRESSION: New focal area of architectural distortion seen in the central aspect of the left breast on the craniocaudad view as described. The patient will be recalled for additional views of the left breast. Recall Side: Left Breast ASSESSMENT CATEGORY: BIRADS Category 0: Incomplete. Need additional imaging evaluation. A letter regarding these results will be sent to the patient by the facility within 30 days. Approximately 10% of breast cancers are not detected by mammography. A normal mammogram should not delay biopsy of a clinically suspicious abnormality. [id number] Electronically Signed: Jarret Garcia MD at 9:00 EDT Reading Location ID and State: [address] [place] [address] , Service support , ROS General General: Yes weight change; No appetite, fatigue, colon cancer, breast cancer or weakness HEENT HEENT: No difficulty swallowing, eye injury, eye surgery, swollen glands or hoarseness Endo Endocrine: No thyroid disease, diabetes mellitus, thyroid cancer, Hair loss, heat intolerance or cold intolerance Skin Skin: No rash or changing moles Breast Breast: No left breast lump, right breast lump, nipple discharge, breast pain, abnormal mammogram, abnormal US or breast enlargement Musc Musculoskeletal: No back problems, arthritis, rheumatoid arthritis, gout or joint pain Cardio Cardiovascular: No murmur, pacemaker, heart disease, atrial fibrillation, high blood pressure, heart attack, heart stent, palpitations, shortness of breat with exertion or chest pain Psych Psychiatric: No depression, anxiety or hearing voices Resp Respiratory: No shortness of breath, No sleep apnea, No cough, No COPD, No asthma, No emphysema and No wheezing Gastro Gastrointestinal: No abdominal pain, No nausea or vomiting, No diarrhea, No constipation, No blood in stool, No acid reflux, No hemorrhoids, No ulcers, No gallbladder problem and No black,tarry stools Edi Hematologic: No blood thinners, No blood disorders, No bleeding, No anemia and No blood clots Neuro Neurologic: No system reviewed and no additional complaints, except as documented, No as per HPI, No abnormal gait, No abnormal hearing, No abnormal movements, No abnormal speech, No behavioral changes, No burning sensations, No confusion, No convulsions, No disequilibrium, No dizziness, No localized weakness, No frequent falls, No headache(s), No lack of coordination, No loss of vision, No memory loss, No numbness, No other visual disturbances, No radicular pain, No restless legs, No sensory deficit, No syncope, No tingling, No tremor(s), No weakness and No other Exam Const General: cooperative, healthy appearing, comfortable and no acute distress Nutritional Appearance: average body habitus Orientation: alert and awake [facility] Head: normal to inspection Eyes General: appearance normal, both eyes and all related structures Neck Neck: normal visual inspection Chest Other: Bilateral breasts: No focal mass. No nipple discharge. No axillary or clavicular adenopathy Resp Effort & Inspection: normal respiratory effort Auscultation: clear to auscultation bilaterally Cardio Rate: regular rate Rhythm: regular rhythm GI Inspection: normal to inspection Palpation: soft and no hepatosplenomegaly Musc Cervical Spine: normal cervical lordosis Skin General: no rashes or lesions noted Neuro General: patient alert, patient awake and patient oriented x3 Extrem General: no calf tenderness Psych Appearance: grossly normal Office Procedures Biopsy Provider Documentation Ultrasound-guided needle core biopsy upper outer quadrant left breast 1 o'clock position +3 cm Timeout informed consent was obtained. The patient was taken the procedure room placed upon the table left shoulder roll was placed. The left breast was prepped with chlorhexidine. Ultrasound was performed. The area in question approximately 1 to 2 o'clock position +4 cm was identified. Admittedly consistent imaging of this area was challenging. 1% lidocaine mixed 50-50 with 0.5% Marcaine was used as a local anesthetic. 5 cc was used. Small stab incision was created. A 14-gauge Monopty needle was advanced to prefire depth. Pre and post fire films were obtained. 3 cores obtained. Marking clip was left in position. Pressure was held for hemostasis. Steri-Strip Telfa OpSite dressing applied. No apparent complication. She was given activity and wound care instructions. Yousuf Narayanan M.D., F.A.C.S. Biopsy Breast Biopsy: [id number] US Guidance Procedure Time Out Time Out Informed consent given: Yes Consent signed: Yes Time out checklist: patient, procedure, site marked/identified, positioning of patient, supplies available, allergies confirmed and team agrees on procedure Time out staff in room: Yes Time out verified: Yes Time out date: 03/13/23 Time out time: 16:08 Assessment and Plan Assessment and Plan (1) Abnormal ultrasound of breast: Status: Acute (2) Abnormal mammogram of left breast: Status: Acute Plan: 52-year-old female with abnormal upper outer quadrant left breast mammogram and ultrasound. I did perform an ultrasound-guided needle core biopsy of the left breast 1:00 +3 cm. This was technically demanding as the area in question was challenging to visualize. Marking clip was placed. Postprocedural mammograms will be obtained tomorrow. Specimens placed in formalin. She will be notified of results. She has been cautioned that we may need to proceed with a stereotactic needle core biopsy if appropriate specimen has not been obtained or if the marking clip is in the incorrect position. She has had an opportunity to ask and have questions answered. This is a higher level of suspicion and we will pursue this and assure appropriate sampling. Copy: Dr. Simona Wahl and Dr. Lo Narayanan M.D., F.A.C.S. I have examined the patient and the H&P has been reviewed. There are no clinical changes since date of exam. Yousuf Narayanan M.D., F.A.C.S.
--- NOTE | 2023-03-26 08:44 | PCM.OPRPT ---
Report of Operation Date of Procedure: 03/26/23 Pre-Operative Diagnosis: Mammographic density upper outer left breast Post-Operative Diagnosis: Mammographic density upper outer left breast Surgery/Procedure Performed:: Stereotactic needle core biopsy upper outer quadrant left breast Description of Surgical Findings:: Timeout informed consent was obtained. 52-year-old female was taken to the stereotactic room placed prone on the table the left breast was placed in a cc view the density in question was felt to been identified although the area itself is vague. Stereotactic images were obtained. Target scalp was selected replacing image 2. The breast was prepped with alcohol due to iodine allergy. 1% lidocaine was used as a local anesthetic. 10 cc was used. A small stab incision was created. An 8 gauge resolved needle was advanced to prefire depth. Prefire films were obtained demonstrating adequate localization. The device was fired. 12 total cores were obtained. Mini marking clip was left at 12 o'clock position. On fast view demonstrated good positioning. She was released from the device pressure was held for hemostasis Steri-Strip Telfa OpSite dressing applied. She was given ice pack and wound care instructions. Specimens were immediately transferred to formalin for analysis. No apparent complication. Blood loss minimal. Yuosuf Narayanan M.D., F.A.C.S. Surgeon: Yousuf Narayanan Type of Anesthesia: Local
== END | disposition home or self-care (01) ==
LOC: BIRAD 07:55
PROVIDERS: PCP Internal Medicine; Referring Provider Surgery; Visit Provider Surgery
DX: N60.92 Unspecified benign mammary dysplasia of left breast (principal)
CPT/HCPCS: 19083; 19081; 88305; J7050

== ENCOUNTER → 2023-09-20 | Outpatient (CLI) | payer OTHER, SELFPAY ==
--- NOTE | 2023-09-20 08:57 | US_ITS ---
STUDY: ULTRASOUND BREAST - LEFT REASON FOR EXAM: Female, 53 years old. History of prior left breast biopsy. TECHNIQUE: Axial and longitudinal images of the LEFT breast were performed with a high resolution ultrasound transducer. # OF IMAGES: 52 COMPARISON: Comparison is made with prior mammogram done earlier in the day and prior sonogram of the left breast dated March 07, 2023. FINDINGS: LEFT Breast: The upper-outer quadrant of the left breast was examined with ultrasound. There is a 4 mm x 4 mm x 3 mm cyst at the 12:00 position in the breast at 4 cm from the nipple. A similar appearing 9 mm x 9 mm x 8 mm cyst is seen at the 1:00 position of the breast at 3 cm from nipple. Stable 1 cm x 0.9 cm heterogeneous hypoechoic nodule at the 1:00 position of the breast at 3 cm from the nipple. A tissue clip marker is seen within it. US/Breast Limited Unilateral IMPRESSION: Stable 1 cm x 0.9 cm heterogeneous hypoechoic nodule at the 1:00 position of the breast at 3 cm from the nipple. A tissue clip marker seen. ASSESSMENT CATEGORY: BIRADS Category 2: Benign. A letter regarding these results will be sent to the patient by the facility within 30 days. Electronically Signed: Jarret Garcia MD at 10:34 EST ,
--- NOTE | 2023-09-20 08:57 | BI_ITS ---
MAMMOGRAPHY - UNILATERAL DIAGNOSTIC: LEFT BREAST REASON FOR EXAM: Female, 53 years old. Prior left stereotactic and ultrasound-guided breast biopsies. PERTINENT HISTORY: Mother with breast cancer. Grandmother with breast cancer. TECHNIQUE: Digital unilateral breast [place] (3D mammographic acquisition) in the CC and MLO projections. 2-D mediolateral oblique (MLO) and craniocaudad (CC) views of both breasts were obtained. CAD: Full Field Digital Mammography with Computer Added Detection was performed. COMPARISON: Comparison is made with prior study dated March 06, 2023 and March 14, 2023. FINDINGS: Breast Composition: The breasts are heterogeneously dense, which may obscure small masses. There are no dominant masses or suspicious calcifications. A tissue marker is seen in the anterior upper lateral aspect of the left breast. A tissue clip marker is also seen in the upper central portion of the left breast. Stable benign-appearing left axillary lymph nodes. No other significant abnormalities are identified. BI/DIAG MAMM W/CAD, UNILAT IMPRESSION: Stable unilateral diagnostic mammogram. One year follow-up mammogram recommended. (A) ASSESSMENT CATEGORY: BIRADS Category 2: Benign. A letter regarding these results will be sent to the patient by the facility within 30 days. Approximately 10% of breast cancers are not detected by mammography. A normal mammogram should not delay biopsy of a clinically suspicious abnormality. Electronically Signed: Jarret Garcia MD at 10:31 EST ,
--- OUTSIDE RECORDS SUMMARY | 2023-09-20 09:04 | XMS RPT_ITS | CCD ---
Author Name Unknown Address [address] [place] [address] [facility] Allergy Classification Reported Allergen(s) Allergy Type Date of Onset Reaction(s) Facility (3 sources) Acetaminophen; Translations: [acetaminophen] Drug Allergy severe rash [facility] Work Phone: (3 sources) Amoxicillin / Clavulanate; Translations: [amoxicillin-clav ulanate] Drug Allergy bladder infections [facility] Work Phone: (3 sources) Aspirin; Translations: [aspirin] Drug Allergy severe rashes [facility] Work Phone: (3 sources) Ibuprofen; Translations: [ibuprofen] Drug Allergy severe rash [facility] Work Phone: (3 sources) Sulfonamides (Antibiotic); Translations: [sulfa drugs] Drug allergy [facility] Work Phone: (1 source) Contrast media; Translations: [iodinated radiocontrast agents] Propensity to adverse reactions to drug [facility] Work Phone: Medications Current Medications Medication Drug Class(es) Dates Sig (Normalized) Sig (Original) magnesium oxide 250 mg oral tablet (1 source) Start: 12-05-2021 Magnesium 250 mg tablet Dose : 250 mg = 1 tab(s), Oral, qDay, 0 Refill(s) Start Date: 12/05/21 Status: Ordered metroNIDAZOLE 500 mg oral tablet (2 sources) Nitroimidazole Antimicrobial Start: 07-17-2021 metroNIDAZOLE 500 mg oral tablet Dose : 500 mg = 1 tab(s), Oral, q12h, # 14 tab(s), 0 Refill(s), Pharmacy: [id number], 173, cm, 07/17/21 8:33:00 EST, Height, 96.8, kg, 07/17/21 8:33:00 EST, Dosing Weight Start Date: 08/03/21 Status: Ordered Multivitamin preparation (3 sources) Start: 07-17-2021 take 1 tablet by mouth once daily Multivitamin Dose = 1 tab(s), Oral, Daily, 0 Refill(s) Start Date: 07/17/21 Status: Ordered Problems Problem Classification Problem Date Documented Da te Episodic/Chronic Hypertension with complications and secondary hypertension (3 sources) 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 07-17-2021 Chronic Residual codes; unclassified (3 sources) Family history of breast cancer 07-17-2021 Episodic Results Test Name Value Interpretation Reference Range Facil ity Vital Signs Date Time Vital Sign Value Performing Clinician Faci lity 12-05-2021 08:15-0400 Body height 172.7 cm BOLIVAR KUMAR MD [facility] 12-05-2021 08:15-0400 Body weight 96.8 kg BOLIVAR KUMAR MD [facility] 12-05-2021 08:15-0400 Body weight 32.46 kg/m2 BOLIVAR KUMAR MD [facility] 12-05-2021 08:15-0400 diastolic 86 mm[Hg] BOLIVAR KUMAR MD [facility] 12-05-2021 08:15-0400 Heart rate 73 /min BOLIVAR KUMAR MD [facility] 12-05-2021 08:15-0400 systolic 138 mm[Hg] BOLIVAR KUMAR MD [facility] Encounters Encounter Date Encounter Type Care Provider Facility Start: 12-05-2021 End: 12-05-2021 Admission to establishment BOLIVAR KUMAR MD [facility] Start: 08-30-2021 End: 08-30-2021 Patient encounter procedure BOLIVAR KUMAR MD [facility] Start: 08-14-2021 End: 08-14-2021 Patient encounter procedure BOLIVAR KUMAR MD [facility] Procedures Date Procedure Procedure Detail Performing Clinician Colonoscopy BOLIVAR KUMAR MD Deviated nasal septum (disorder) BOLIVAR KUMAR MD Social History Date Type Detail Facility Start: 07-17-2021 Never smoked t obacco (finding) [facility] Sex Assigned At [facility] Functional Status Date Assessment Result Facility 12-05-2021 Functional Status [facility] Evaluation + Plan note 08-03-2021 LaboratoryRadiology Note Date & Type Note Facility 08-03-2021 Evaluation + Plan note Future Scheduled TestsC-Reactive Protein 08/03/21Urinalysis 08/03/21Complete Blood Count 08/03/21MA Mammo Screening Bilateral w/ Ngiha 07/17/21 [facility] Evaluation + Plan note 08-03-2021 LaboratoryRadiology Note Date & Type Note Facility 08-03-2021 Evaluation + Plan note Future Appointments Future Scheduled TestsC-Reactive Protein 08/03/21Urinalysis 08/03/21Complete Blood Count 08/03/21MA Mammo Screening Bilateral w/ Nghia 07/17/21 [facility] Progress note 07-03-2021 Note Date & Type Note Facility 07-03-2021 Note HNO ID: [id number] Author: Tess Lomeli PA-C Service: ? 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 + urgency. Also feels some occasional vaginal irritation. No itching. No abnormal vaginal itching. Notes burning sensation. Denies fever/chills, nausea, vomiting, diarrhea, new sexual partners. No recent antibiotic use. PAST MEDICAL HISTORY Diagnosis Date - NEGATIVE MEDICAL HISTORY ALLERGIES Advil [Ibuprofen], Aspirin, Augmentin [Amoxicillin-Pot Clavulanate], Bactrim [Sulfamethoxazole-Trimethoprim], and Erythromycin MEDICATIONS Current Outpatient Medications Medication Sig - FLUoxetine (PROZAC) 10 mg tablet Take 1 tablet by mouth once daily. for 2 weeks a month - fluconazole (DIFLUCAN) 150 mg tablet Take 1 tablet by mouth one time only for 1 dose (Patient not taking: Reported on 07/03/2021 ) No current facility-administered medications for this visit. SOCIAL HISTORY Social History Tobacco Use - Smoking status: Never Smoker - Smokeless tobacco: Never Used Substance Use Topics - Alcohol use: Yes Comment: rare - Drug use: No REVIEW OF SYSTEMS See HPI OBJECTIVE: BP 138/88 Pulse 88 Temp 36.4 ?C (97.5 ?F) (Left Tympanic) Resp 16 Wt 97.3 kg (214 lb 9.6 oz) LMP 10/28/2015 SpO2 99% BMI 32.16 kg/m? APPEARANCE Well appearing, alert, in no acute distress, well-hydrated, well nourished. ABDOMEN bowel sounds normoactive, no bruits, soft, non-tender, non-distended, without organomegaly or palpable masses, no tenderness to palpation FEMALE Normal external genitalia, normal vagina other than mild erythema. + white discharge. and normal vaginal tone, normal cervix, BACK no CVA TTP ASSESSMENT/PLAN: 1. Dysuria - ICD9: 788.1, ICD10: R30.0 (primary diagnosis) acute - Send urine for culture - Patient education for prevention given - UA DIP, URINE (POC) - URINE CULTURE - FLUCONAZOLE 150 MG TABLET - VAGINAL PATHOGENS DNA PROBES Begin treatment if culture positive 2. Acute vaginitis - ICD9: 616.10, ICD10: N76.0 Start diflucan. - VAGINAL PATHOGENS DNA PROBES The patient indicates understanding of these issues and agrees with the plan. Reviewed red flags and when to seek care sooner. Tess Lomeli PA-C [facility] Evaluation + Plan note LaboratoryRadiology Note Date & Type Note Facility Evaluation + Plan note Future Appointments Appointment Date:08/18/2021 08:00:00 AM Scheduled Provider:BOLIVAR KUMAR MD Location:[facility] Appointment Type:[facility] Future Scheduled TestsC-Reactive Protein 08/03/21Urinalysis 08/03/21Complete Blood Count 08/03/21MA Mammo Screening Bilateral w/ Nghia 07/17/21 [facility] Hospital course Narrative Note Date & Type Note Facility Hospital course Narrative No data available for this section [facility] Hospital Discharge instructions Note Date & Type Note Facility Hospital Discharge instructions No data available for this section [facility] Progress note Note Date & Type Note Facility Progress note No data available for this section [facility] Summary Purpose Family History No Family History Records FoundNo Family History Records Found Advance Directives No Advanced Directives Records FoundNo Advanced Directives Records Found Additional Source Comments INFORMATION SOURCE (unrecogn ized section and content) DATE CREATED AUTHOR AUTHOR'S ORGANIZ ATION 12/22/2021 [facility] ([place]) FOR RECORDS PERTAINING TO PATIENTS WHO ARE OR HAVE BEEN ENROLLED IN A CHEMICAL DEPENDENCY/SUBSTANCEABUSE PROGRAM, SOME INFORMATION MAY BE OMITTED. This clinical summary was aggregated from multiple sources. Caution should be exercised in using it in the provision of clinical care. This summary normalizes information from multiple sources, and as a consequence, information in this document may materially change the coding, format and clinical context of patient data. In addition, data may be omitted in some cases. CLINICAL DECISIONS SHOULD BE BASED ON THE PRIMARY CLINICAL RECORDS. [facility]. provides no warranty or guarantee of the accuracy or completeness of information in this document.
== END | disposition home or self-care (01) ==
PROVIDERS: PCP Internal Medicine; Referring Provider Surgery; Visit Provider Surgery
DX: R92.8 Other abnormal and inconclusive findings on diagnostic imaging of breast (principal)
CPT/HCPCS: 76642; 77061; 77065; G0279

== ENCOUNTER → 2023-10-15 | Outpatient (CLI) | payer OTHER, SELFPAY ==
--- NOTE | 2023-10-15 11:02 | MRI_ITS ---
STUDY: BILATERAL BREAST MR WITHOUT AND WITH CONTRAST REASON FOR EXAM: Female, 53 years old. Persistent tenderness of L breast TECHNIQUE: Multi-sequence multi-echo imaging of both breasts was performed with a dedicated breast coil. T1-weighted and T2-weighted images were performed before the administration of contrast. T1-weighted images were also performed after the administration of IV 15cc Clariscan without complications. COMPARISON: Mammograms and ultrasound exams dating back to August 2021 FINDINGS: RIGHT BREAST: The breast tissue is The breasts are heterogenously dense, which may obscure small masses, with minimal background enhancement. There are no abnormal enhancing masses or areas of non-mass enhancement in the right breast. LEFT BREAST: The breast tissue is The breasts are heterogenously dense, which may obscure small masses, with minimal background enhancement. There are no abnormal enhancing masses or areas of non-mass enhancement in the left breast. Again seen is a 1 cm mass along the 1:00 axis, 6 cm from the nipple containing a biopsy clip. There may be accompanying enhancement, however it is not well assessed due to susceptibility artifact associated with the biopsy clip. An additional biopsy clip is present along the 3:00 axis at middle depth. There are no enlarged or abnormal lymph nodes. There is no abnormality in the visualized regions of the chest or liver. MRI/Breast Bilateral W/O and W IMPRESSION: * No etiology is evident for the patient''s left breast pain. * Unremarkable breast MR examination with contrast. CATEGORY: BIRADS Category 2: Benign. A letter regarding these results will be sent to the patient by the facility within 30 days. Electronically Signed: Manpreet Wu MD at 6:00 [facility] ,
== END | disposition home or self-care (01) ==
PROVIDERS: PCP Internal Medicine; Referring Provider Surgery; Visit Provider Surgery
DX: R92.342 Mammographic extreme density, left breast (principal); N63.20 Unspecified lump in the left breast, unspecified quadrant
CPT/HCPCS: 77049; A9575; A4216; C8908

== ENCOUNTER → 2024-03-18 | Outpatient (CLI) | payer OTHER, SELFPAY ==
--- NOTE | 2024-03-18 08:51 | BI_ITS ---
MAMMOGRAPHY - BILATERAL DIAGNOSTIC REASON FOR EXAM: Female, 53 years old. Follow-up for left ultrasound-guided breast biopsy and left stereotactic breast biopsy. PERTINENT HISTORY: Mother with breast cancer. Grandmother with breast cancer. TECHNIQUE: Digital bilateral breast [place] (3D mammographic acquisition) in the CC and MLO projections. 2-D mediolateral oblique (MLO) and craniocaudad (CC) views of both breasts were obtained. CAD: Full Field Digital Mammography with Computer Added Detection was performed. COMPARISON: Comparison is made with prior study dated September 20, 2023 and March 06, 2023. FINDINGS: Breast Composition: The breasts are heterogeneously dense, which may obscure small masses. A tissue clip marker is seen in the anterior upper lateral aspect of the left breast. A second tissue clip marker is also seen in the upper central portion of the left breast. Stable architectural distortion in the central portion of the left breast. No other significant abnormalities are identified. There has been no significant change since the prior study. BI/DIAG MAMM W/CAD, BILAT IMPRESSION: Stable bilateral diagnostic mammogram. One year follow-up recommended. (A) ASSESSMENT CATEGORY: BIRADS Category 2: Benign. A letter regarding these results will be sent to the patient by the facility within 30 days. Approximately 10% of breast cancers are not detected by mammography. A normal mammogram should not delay biopsy of a clinically suspicious abnormality. Electronically Signed: Jarret Garcia MD at 9:55 EDT ,
--- NOTE | 2024-03-18 09:46 | US_ITS ---
STUDY: ULTRASOUND BREAST - LEFT REASON FOR EXAM: Female, 53 years old. Prior left breast biopsy. TECHNIQUE: Axial and longitudinal images of the LEFT breast were performed with a high resolution ultrasound transducer. # OF IMAGES: 37 COMPARISON: Comparison is made with prior mammogram done earlier today. FINDINGS: LEFT Breast: The upper outer aspect of the left breast was examined with ultrasound. Stable 1 cm x 0.9 cm hypoechoic nodule at the 1:00 position breast at 3 cm from nipple. A tissue marker is seen within it. US/Breast Limited Unilateral IMPRESSION: Stable examination. ASSESSMENT CATEGORY: BIRADS Category 2: Benign. A letter regarding these results will be sent to the patient by the facility within 30 days. Electronically Signed: Jarret Garcia MD at 11:12 EDT ,
== END | disposition home or self-care (01) ==
PROVIDERS: PCP Internal Medicine; Referring Provider Surgery; Visit Provider Surgery
DX: R92.8 Other abnormal and inconclusive findings on diagnostic imaging of breast (principal)
CPT/HCPCS: 76642; 77062; 77066; G0279

== ENCOUNTER → 2025-06-08 | Outpatient (CLI) | payer OTHER, SELFPAY ==
--- NOTE | 2025-06-08 08:10 | BI_ITS ---
EXAM: BI/SCRN MAMM (CAD)W/ALEXANDRU BILAT
== END | disposition home or self-care (01) ==
PROVIDERS: PCP Internal Medicine; Referring Provider Obstetrics & Gynecology Gynecology; Visit Provider Obstetrics & Gynecology Gynecology
DX: Z12.31 Encounter for screening mammogram for malignant neoplasm of breast (principal)
CPT/HCPCS: 77063; 77067